=== PATIENT | male | born 1985 | race Caucasian/White ===

== ENCOUNTER 2017-07-31 20:24 | Emergency (ER) | payer MEDICAID ==
--- NOTE | 2017-07-31 20:59 | EDM.PDOC ---
ED HPI GENERAL MEDICAL PROBLEM - General Chief Complaint: Gastrointestinal Problem Stated Complaint: RIGHT FLANK PAIN Time Seen by Provider: 07/31/17 20:59 Source of Information: Reports: Patient History Limitations: Reports: No Limitations - History of Present Illness INITIAL COMMENTS - FREE TEXT/NARRATIVE: 32-year-old male [place] and descent presents primarily to the ED because of right hip low back pain with his leg giving out intermittently making him fall. This started about 3 days ago any swollen 4 times. Secondly he developed diffuse watery diarrhea stool once again today partially separate stool so far today. He had similar illness that lasted 24 hours about a week ago. It was not associated with any vomiting. States for 3 days then he didn't have a stool in his stools were just starting to form up before he developed watery diarrhea once again today. 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 still clear inset of white which places him at risk of Salmonella. He has no blood per rectum or dysentery. He had really bad cramps associated fever and headache with initial onset of illness but this time mostly diarrhea. States every step is painful to walk in his right upper hip buttock area. Onset: Today (Recurrence of watery diarrhea), Gradual (Right low back hip pain for the last 3 days) Duration: Other (See above) Location: Reports: Abdomen (Primary reason for coming to the ED was right hip low back pain second problem is recurrent loose watery diarrhea stools 7 today. ), Back Quality: Reports: Ache, Burning, Stabbing Severity: Moderate (Will be bad enough that it makes his right leg give out and has made him fall 4 times in the last 3 days.) Improves with: Reports: Rest Worsens with: Reports: Movement (Bending over and walking and certain positions) Context: Denies: Activity ( cause it to hurt worse.), Exercise, Lifting, Sick Contact, Trauma, Other Associated Symptoms: Reports: Malaise, Other (Diarrhea). Denies: No Other Symptoms, Confusion, Chest Pain, Cough, cough w sputum, Diaphoresis, Fever/ Chills, Headaches, Loss of Appetite, Rash, Seizure, Shortness of Breath, Syncope Treatments MOSHGIACH: Reports: Other (see below) (None.) Right Lower Flank Pain Score (Numeric/FACES): 8 - Related Data Allergies Allergy/AdvReac Type Severity Reaction Status Date / Time aspirin Allergy Swelling Verified 07/31/17 20:42 trimethobenzamide Allergy Swelling Verified 07/31/17 20:50 Home Meds: Home Meds Ciprofloxacin HCl [Cipro] 500 mg PO BID #12 tablet 07/31/17 [Rx] Prednisone [IJD: predniSONE] 20 mg PO ASDIRECTED #15 tab 07/31/17 [Rx] Past Medical History Other Gastrointestinal History: Colitis Other Endocrine/Metabolic History: Hypoglycemia Social & Family History - Tobacco Use Smoking Status *Q: Never Smoker - Recreational Drug Use Recreational Drug Use: No - Living Situation & Occupation Living situation: Reports: Single 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 Is associated with profuse watery diarrhea as well. No nausea or vomiting occurred.), Decreased Appetite, Weight Loss HEENT: Reports: No Symptoms Respiratory: Reports: No Symptoms Cardiovascular: Reports: No Symptoms Endocrine: Reports: No Symptoms GI/Abdominal: Reports: Abdominal Pain (Had terrible abdominal cramps and pain with the initial onset of illness but not so today with watery diarrhea minimal cramps.). Denies: Decreased Appetite, Difficulty Swallowing, Distension, Flatus , Hematochezia, Melena, Stool Incontinence : Reports: No Symptoms Musculoskeletal: Reports: Back Pain (Primary reason for coming to the ED was pain in his right but talk hip area.) Skin: Reports: No Symptoms Neurological: Reports: No Symptoms Psychiatric: Reports: No Symptoms Hematologic/Lymphatic: Reports: No Symptoms Immunologic: Reports: No Symptoms ED EXAM, GI/ABD - Physical Exam Exam: See Below Exam Limited By: No Limitations General Appearance: Alert, WD/WN, No Apparent Distress Eyes: Bilateral: Normal Appearance (No jaundice) Throat/Mouth: Other (Tongue is mildly dry) Head: Atraumatic ( red and coated from red Gatorade that he's drinking), Normocephalic Neck: Normal Inspection, Supple, Non-Tender, Full Range of Motion. No: Lymphadenopathy (L), Lymphadenopathy (R) Respiratory/Chest: No Respiratory Distress, Lungs Clear, Normal Breath Sounds, No Accessory Muscle Use, Chest Non-Tender Cardiovascular: Normal Peripheral Pulses, Regular Rate, Rhythm, No Edema, No Gallop, No Murmur, No Rub GI/Abdominal Exam: Normal Bowel Sounds, Soft, Non-Tender, No Organomegaly, No Abnormal Bruit, No Mass, Pelvis Stable, Other. No: Guarding, Rebound (Male) Exam: No Hernia (No surgical scars) Back Exam: Normal Inspection, Full Range of Motion, Other (Pain is well localized to the superior half of the right sacroiliac joint.). No: CVA Tenderness (L), CVA Tenderness (R) Extremities: Normal Inspection, Normal Range of Motion, Non-Tender, No Pedal Edema Neurological: Alert, Oriented, CN II-XII Intact, Normal Cognition, Normal Gait Psychiatric: Normal Affect, Normal Mood Skin Exam: Warm, Dry, Intact, Normal Color, No Rash Course - Vital Signs Last Recorded V/S: Last Vital Signs Temp 36.7 C 07/31/17 20:42 Pulse 92 07/31/17 20:42 Resp 16 07/31/17 20:42 BP 130/83 07/31/17 20:42 Pulse Ox 97 07/31/17 20:42 - Radiology Interpretation Free Text/Narrative:: 32-year-old male presents the ED with 2 problems. His chief complaint was right hip low back pain that is making his right leg give out intermittently over the last 3 days. He's fallen 4 times because his right hip suddenly gives out. Should pain over his posterior iliac crest on the right side. Second reason for coming to the ED was once again development of profuse watery diarrhea 7 right bowel mostly with no blood. His similar type illness a week ago which cleared after 36 hours. Stools were just trying to become formed up and normal when he developed recurrence of diarrhea. 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 Initial onset of illness was associated with fever chills headache and diffuse myalgia. Digestive viremia or bacteremia. No blood in the stool has been identified and he is currently not having any abdominal pain. Examination reveals acute right sacroiliitis as a cause of his right but talk hip pain. Plan sent him home with a culture container for stool and he is to bring this back to the lab after one is collected. He will then start Cipro 500 mg twice daily for 6 days. If he grows out Salmonella or Shigella the medicine will be stopped. He is allergic to aspirin with marked edema and urticaria. Therefore concern exists about potential cross reaction with NSAIDs. I will place him on prednisone 20 mg breakfast and supper for 5 days then 1 in the morning only for another 5 days to relieve pain and inflammation in his Rt SI joint Departure - Departure Time of Disposition: 21:26 Disposition: Home, Self-Care 01 Clinical Impression: Sacroiliitis, Diarrhea - Discharge Information Prescriptions: Ciprofloxacin HCl [Cipro] 500 mg PO BID #12 tablet Prednisone [IJD: predniSONE] 20 mg PO ASDIRECTED #15 tab Instructions: Diarrhea, Adult Referrals: French Kimbrough Jr, MD [Primary Care Provider] - Forms: ED Department Discharge Additional Instructions: Evaluation the emergency room tonight in regards to 2 problems. One is that of recurrence of watery diarrhea over a period of a week. Possibility of foodborne illness with exposure to raw egg appreciated by you. Suggest a stool be collected at home and then brought back to the lab at the hospital for analysis. It'll take about 24 hours to get a result of any growth in the diarrheal stool. As soon as specimen is collected may start antibiotic Cipro 500 mg twice daily and continue this for the next 6 days to clear up diarrhea stool. Also suggest picking up some probiotic i.e. Florastar and take as directed on the package. Diet should be clear fluids such as Gatorade Powerade. Avoid all dairy products and no apple or grape juice until stools are formed back up. Once hungry try crackers and advance to light soup such as turkey rice turkey noodle toast, poached or hard-boiled egg etc. Second problem was inflammation of the right sacroiliac iliac joint giving you right low back pain and hip pain that makes her leg give out intermittently. This should be treated with anti-inflammatory Deltasone 20 mg with breakfast and supper for 5 days then 1 tablet in the morning only for another 5 days to relieve pain and inflammation. Expect gradual improvement over the next 3-5 days in this regard
== END 2017-07-31 21:50 | disposition home or self-care (01) ==
LOC: JD.ED 20:24
DX: M46.1 Sacroiliitis, not elsewhere classified (principal); R19.7 Diarrhea, unspecified; Z88.6 Allergy status to analgesic agent; Z88.8 Allergy status to other drugs, medicaments and biological substances
CPT/HCPCS: 99283; 99284

== ENCOUNTER 2017-08-02 21:18 | Emergency (ER) | payer MEDICAID ==
[2017-08-02] MEDS ORDERED: Ondansetron 4 MG/2 ML SDV IVPUSH ONE (21:53)
[2017-08-02] MEDS ORDERED: Sodium Chloride 0.9% 1,000 ML IV ONE (21:54)
--- NOTE | 2017-08-02 21:57 | EDM.PDOC ---
ED HPI GENERAL MEDICAL PROBLEM - General Chief Complaint: Gastrointestinal Problem Stated Complaint: vomiting diaRRHEA Time Seen by Provider: 08/02/17 21:26 Source of Information: Reports: Patient, Old Records, RN Notes Reviewed History Limitations: Reports: No Limitations - History of Present Illness INITIAL COMMENTS - FREE TEXT/NARRATIVE: The patient states that he developed watery diarrhea, nausea without emesis, severe abdominal cramps, chills, and a headache on 07/27/2017, that persisted through 07/29/2017. His symptoms began about 6-7 hours after he ate a burrito that contained scrambled eggs. Because he developed diarrhea, he presumed that the eggs were undercooked and the cause of his diarrhea, however, he acknowledges that the burrito smelled and tasted normal. His symptoms resolved, but he again developed watery diarrhea, nausea without emesis , and abdominal cramps on 07/31/2017. Medical records indicate that he was seen in this emergency department for that second episode of diarrhea on 07/31/2017. Because of the report of eating undercooked eggs, the concern for nontyphoidal salmonella was raised, and the patient was prescribed ciprofloxacin 500 mg po BID x 6 days. For a complaint of right sacroiliitis, the patient was also prescribed prednisone 20 mg BID x 5 days, to be followed by 20 mg daily x 5 days. The patient states that he had no bowel movement whatsoever yesterday. He states that he took his first dose of prednisone last night, but no ciprofloxacin. He redeveloped frequent watery diarrhea, nausea, emesis, and abdominal cramps this morning. He states that he took a dose of ciprofloxacin and a dose of prednisone this morning, however, has not taken either since. He states that he has had perhaps 30 episodes of diarrhea today. He has not tried any antidiarrheal medications or antinausea medications. He has not had a fever, although has had chills. He feels generally weak. No urinary symptoms or flank pain. The patient's PCP is Dr. French Kimbrough. Dr. Kimbrough has not been made aware of the patient's complaints. Right Lower Back Pain Score (Numeric/FACES): 9 Abdominal Pain Score (Numeric/FACES): 9 - Related Data Allergies Allergy/AdvReac Type Severity Reaction Status Date / Time aspirin Allergy Swelling Verified 08/02/17 21:24 trimethobenzamide Allergy Swelling Verified 08/02/17 21:24 Home Meds: Home Meds Ciprofloxacin HCl [Cipro] 500 mg PO BID #12 tablet 07/31/17 [Rx] Prednisone [IJD: predniSONE] 20 mg PO ASDIRECTED #15 tab 07/31/17 [Rx] Ondansetron [Zofran ODT] 4 mg PO Q8H PRN #10 tab.dis 08/02/17 [Rx] Past Medical History Other Gastrointestinal History: Colitis Other Endocrine/Metabolic History: Hypoglycemia Social & Family History - Tobacco Use Smoking Status *Q: Never Smoker - Recreational Drug Use Recreational Drug Use: No - Living Situation & Occupation Living situation: Reports: Single 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 ED EXAM, GI/ABD - Physical Exam Exam: See Below Exam Limited By: No Limitations General Appearance: Alert, WD/WN, No Apparent Distress Eyes: Bilateral: Normal Appearance, EOMI Ears: Normal External Exam, Hearing Grossly Normal Nose: Normal Inspection, No Blood Throat/Mouth: Normal Inspection, Normal Lips, Normal Voice, No Airway Compromise Head: Atraumatic, Normocephalic Neck: Normal Inspection, Full Range of Motion Respiratory/Chest: No Respiratory Distress, Lungs Clear, Normal Breath Sounds, No Accessory Muscle Use Cardiovascular: Normal Peripheral Pulses, Regular Rate, Rhythm, No Gallop, No JVD, No Murmur, No Rub GI/Abdominal Exam: Normal Bowel Sounds, Soft, Non-Tender, No Organomegaly, No Distention, No Abnormal Bruit, No Mass (Male) Exam: Deferred Rectal (Males) Exam: Deferred Back Exam: Normal Inspection, Full Range of Motion, NT Extremities: Normal Inspection, Normal Range of Motion, No Pedal Edema, Normal Capillary Refill Neurological: Alert, Oriented, Normal Cognition, No Motor/Sensory Deficits Psychiatric: Normal Affect Skin Exam: Warm, Dry, Intact, Normal Color, No Rash Course - Vital Signs Last Recorded V/S: Last Vital Signs Temp 36.4 C 08/02/17 21:25 Pulse 82 08/02/17 21:25 Resp BP 141/85 H 08/02/17 21:25 Pulse Ox 100 08/02/17 21:25 Orthostatic Blood Pressure [ 121/78 Standing] Orthostatic Blood Pressure [ 134/82 Sitting] Orthostatic Blood Pressure [ 119/73 Supine] - Orders/Labs/Meds Orders: Active Orders 24 hr Category Date Time Status Orthostatic Vital Signs [RC] STAT Care 08/02/17 21:53 Active CULTURE STOOL + SHIGATOX [RM] Stat Lab 08/02/17 22:20 Ordered NOROVIRUS GROUP 1 & 2 RT-PCR Stat Lab 08/02/17 21:55 Ordered ROTAVIRUS DIRECT ANTIGEN STOOL [OP] Stat Lab 08/02/17 22:20 Ordered Loperamide [Imodium] Med 08/02/17 22:49 Stat 4 mg PO ONETIME STA Sodium Chloride 0.9% @ 150 MLS/HR (1000ml Bag) Med 08/02/17 23:00 Ordered Sodium Chloride 0.9% [Normal Saline] 1,000 ml IV ASDIRECTED Sodium Chloride 0.9% [Normal Saline] 1,000 ml Med 08/02/17 21:54 Active IV ONETIME Medication Orders Sodium Chloride (Normal Saline) 1,000 mls @ 999 mls/hr IV ONETIME ONE Stop: 08/02/17 22:54 Last Admin: 08/02/17 21:50 Dose: 999 mls/hr Sodium Chloride (Normal Saline) 1,000 mls @ 150 mls/hr IV ASDIRECTED SID Loperamide HCl (Imodium) 4 mg PO ONETIME STA Stop: 08/02/17 22:50 Labs: Laboratory Tests 08/02/17 08/02/17 08/02/17 Range/Units 21:35 21:35 21:38 WBC 7.20 (4.23-9.07) K/mm3 RBC 5.44 (4.63-6.08) M/mm3 Hgb 16.1 (13.7-17.5) gm/L Hct 49.0 (40.1-51.0) % MCV 90.1 (79.0-92.2) fl MCH 29.6 (25.7-32.2) pg MCHC 32.9 (32.2-35.5) g/dl RDW Std Deviation 41.9 (35.1-43.9) fL Plt Count 247 (163-337) K/mm3 MPV 10.3 (9.4-12.3) fl Neutrophils % (Manual) 66 H (40-60) % Band Neutrophils % 0 (0-10) % Lymphocytes % (Manual) 20 (20-40) % Atypical Lymphs % 1 % Monocytes % (Manual) 12 H (2-10) % Eosinophils % (Manual) 1 (0.8-7.0) % Basophils % (Manual) 0 L (0.2-1.2) Platelet Estimate Adequate Plt Morphology Comment Normal RBC Morph Comment Normal Sodium 140 (136-145) mEq/L Potassium 3.3 L (3.5-5.1) mEq/L Chloride 104 (98-107) mEq/L Carbon Dioxide 24 (21-32) mEq/L Anion Gap 15.3 H (5-15) BUN 13 (7-18) mg/dL Creatinine 0.9 (0.7-1.3) mg/dL Est Cr Clr Drug Dosing 127.82 mL/min Estimated GFR (MDRD) > 60 (>60) mL/min BUN/Creatinine Ratio 14.4 (14-18) Glucose 113 H (74-106) mg/dL POC Glucose 102 (70-105) mg/dL Calcium 9.1 (8.5-10.1) mg/dL Magnesium 1.9 (1.8-2.4) mg/dl Total Bilirubin 0.3 (0.2-1.0) mg/dL AST 37 (15-37) U/L ALT 80 H (16-63) U/L Alkaline Phosphatase 72 (46-116) U/L Total Protein 8.6 H (6.4-8.2) g/dl Albumin 4.6 (3.4-5.0) g/dl Globulin 4.0 gm/dL Albumin/Globulin Ratio 1.2 (1-2) Meds: Medications Generic Name Dose Route Start Last Admin Trade Name Freq PRN Reason Stop Dose Admin Sodium Chloride 1,000 mls @ 999 mls/hr 08/02/17 21:54 08/02/17 21:50 Normal Saline IV 08/02/17 22:54 999 mls/hr ONETIME ONE Administration Sodium Chloride 1,000 mls @ 150 mls/hr 08/02/17 23:00 Normal Saline IV ASDIRECTED SID Loperamide HCl 4 mg 08/02/17 22:49 Imodium PO 08/02/17 22:50 ONETIME STA Discontinued Medications Generic Name Dose Route Start Last Admin Trade Name Pari PRN Reason Stop Dose Admin Ondansetron HCl 4 mg 08/02/17 21:53 08/02/17 22:04 Zofran IVPUSH 08/02/17 21:54 4 mg ONETIME ONE Administration - Re-Assessments/Exams Free Text/Narrative Re-Assessment/Exam: 08/02/17 21:56 The patient is not orthostatic. 08/02/17 22:49 The initial report of eating undercooked eggs prompted the concern of nontyphoidal Salmonella and the prescription of oral ciprofloxacin, however, closer examination of the history finds that the eggs were not undercooked, rather, that the patient believed that they were undercooked because he became sick about 6 hours later. In actual fact, gastroenteritis is rarely caused by exposure that same day, rather, it is caused by exposure 3 days prior. Additionally, Salmonella from eating scrambled eggs would be uncommon. Salmonella is not within the egg; it is on the surface. Salmonella can be introduced into the egg when the egg is cracked open, however, if the eggs are quickly scrambled, there would not be much time for bacterial growth and replication, and the heat from scrambling the eggs would kill the bacteria, anyway. Eating RAW eggs could potentially cause Salmonella food poisoning, but that is not the situation in this case. While nontyphoidal Salmonella can certainly masquerade as a viral gastroenteritis, with the concern of eating undercooked eggs now set-aside, I believe the patient's current gastroenteritis symptoms are likely viral in etiology. Salmonella can only be diagnosed by culture - there are no rapid tests , but his lack of an elevated WBC count, lack of WBCs in the stool, nonbloody diarrhea, and no fever are all reassuring. A stool culture and Norovirus PCR have been sent. For today's purposes, I'm going to recommend treatment for what appears to be viral gastroenteritis that will include oral Zofran, oral loperamide, and rehydration with oral Gatorade or similar electrolyte fluid. I'm going to recommend that he discontinue the ciprofloxacin. Departure - Departure Time of Disposition: 23:11 Disposition: Home, Self-Care 01 Condition: Good Clinical Impression: Viral gastroenteritis - Discharge Information Referrals: French Kimbrough Jr, MD [Ordering Only Provider] - Forms: ED Department Discharge Additional Instructions: You were seen in the emergency room for recurrent watery diarrhea with abdominal cramps, nausea, and vomiting. Workup in the ER included blood work, stool studies, and positional blood pressure checked. Your entire workup was unremarkable. You are not dehydrated. You are not volume depleted. The exact cause of your gastroenteritis is not clear, but is MOST LIKELY viral. We will not know if you have salmonella or not until your stool culture has resulted, which may take a few days. In the meantime, we recommend that you STOP TAKING the ciprofloxacin. Dissolve one tablet of the anti-nausea medicine Zofran on your tongue up to every 8 hours, as needed for nausea/vomiting. You have been started on the anti-diarrheal medicine Imodium (loperamide). Take 1 tablet after each loose bowel movement, up to a maximum of 8 tablets within a 24-hour period. We recommend that you stay well hydrated with an electrolyte fluid, such as Gatorade or Powerade. Follow-up with Dr. Oquendo in the clinic as needed. If any other problems, please do not hesitate to return to the ER. - My Orders Last 24 Hours: My Active Orders 08/02/17 21:53 Orthostatic Vital Signs [RC] STAT 08/02/17 21:54 Sodium Chloride 0.9% [Normal Saline] 1,000 ml IV ONETIME 08/02/17 21:55 NOROVIRUS GROUP 1 & 2 RT-PCR Stat 08/02/17 22:20 CULTURE STOOL + SHIGATOX [RM] Stat ROTAVIRUS DIRECT ANTIGEN STOOL [OP] Stat 08/02/17 22:49 Loperamide [Imodium] 4 mg PO ONETIME STA 08/02/17 23:00 Sodium Chloride 0.9% @ 150 MLS/HR (1000ml Bag) Sodium Chloride 0.9% [Normal Saline] 1,000 ml IV ASDIRECTED - Assessment/Plan Last 24 Hours: My Active Orders 08/02/17 21:53 Orthostatic Vital Signs [RC] STAT 08/02/17 21:54 Sodium Chloride 0.9% [Normal Saline] 1,000 ml IV ONETIME 08/02/17 21:55 NOROVIRUS GROUP 1 & 2 RT-PCR Stat 08/02/17 22:20 CULTURE STOOL + SHIGATOX [RM] Stat ROTAVIRUS DIRECT ANTIGEN STOOL [OP] Stat 08/02/17 22:49 Loperamide [Imodium] 4 mg PO ONETIME STA 08/02/17 23:00 Sodium Chloride 0.9% @ 150 MLS/HR (1000ml Bag) Sodium Chloride 0.9% [Normal Saline] 1,000 ml IV ASDIRECTED
[2017-08-02] MEDS ORDERED: Loperamide 2 MG Cap PO STA (22:49)
[2017-08-02] MEDS ORDERED: Sodium Chloride 0.9% 1,000 ML IV SCH (23:00)
== END 2017-08-02 23:30 | disposition home or self-care (01) ==
LOC: JD.ED 21:18
DX: A08.4 Viral intestinal infection, unspecified (principal); Z88.6 Allergy status to analgesic agent; Z88.8 Allergy status to other drugs, medicaments and biological substances
CPT/HCPCS: 36415; 80053; 82962; 83735; 85025; 87046; 87425; 87798; 89055; 96361; 96374; 99284; A9270; J2405; J7040; 87427